=== PATIENT | male | born 1960 | race Caucasian/White ===

== ENCOUNTER 2017-02-13 23:51 | Emergency (ER) | payer BC ==
[~2017-02-13] VITALS: Ht 167.6 cm; Wt 77.1 kg
[~2017-02-13 23:51] MED LIST: AZOR 10/20 M1 TABLET PO; BACTRIM,SEPT1 TABLET PO; CELEXA10 MG PO; HYDROCODON-ACE1 EAC7 PO; KEFLEX500 MG PO; ZYRTEC10 M3 PO
[2017-02-14] MEDS ORDERED: KEFLEX500 MG PO (00:46)
[2017-02-14 01:05] VITALS: BP 157/89
== END 2017-02-14 01:06 | disposition home or self-care (01) ==
LOC: EXP 23:51 → EME 23:51 → EXP 02-14 01:06
DX: L03.116 Cellulitis of left lower limb (principal); S80.212A Abrasion, left knee, initial encounter; X58.XXXA Exposure to other specified factors, initial encounter; F17.200 Nicotine dependence, unspecified, uncomplicated
CPT/HCPCS: 99281; 99283